=== PATIENT | male | born 1990 | race American Indian/Alaskan Native ===

== ENCOUNTER 2019-05-24 08:38 | Emergency (ER) | payer SELFPAY ==
[2019-05-24 08:44] VITALS: BP 145/81
[2019-05-24] MEDS ORDERED: FLUORESCEIN 1 MG STRIP OP ONE (12:02)
[2019-05-24] MEDS ORDERED: TETRACAINE 0.5% OPHTH SOLN 4ML OU ONE (12:02)
[2019-05-24] MEDS ORDERED: TOBRAMYCIN 0.3% OPHTH SOLN 5 ML OU ONE (12:03)
--- NOTE | 2019-05-24 12:03 | Emergency Department Report ---
Eye Injury/Foreign Body - HPI Duration: 1 Day Eye Location: Left Tetanus Status: Up to Date Eye Symptoms: Eye Pain: No, Blurred Vision: Yes, Eye Redness: Yes, Grinding/Hammering Metal: No, Used Eye Protection: No, Contact Lens Use: Yes, Recalls Injury: Yes, Photophobia: No Other History: 28 YO MALE COMES TO ER P SCRATCHING HIS EYE YESTERDAY BY RUBBING IT WITH CONTACT LENSES IN. TODAY EYE WATERING AND SWOLLEN. ED Review of Systems ROS: Stated complaint: CANT SEE OUT OF LEFT EYE Other details as noted in HPI Comment: All other systems reviewed and negative ED Past Medical Hx - Past Medical History Previous Medical History?: No - Surgical History Past Surgical History?: No - Family History Family history: no significant - Social History Smoking Status: Never Smoker Substance Use Type: None - Medications Home Medications: Home Medications Medication Instructions Recorded Confirmed Last Taken Type Azithromycin [Zithromax Z-TITI] 250 mg PO DAILY #6 tablet 05/24/19 Unknown Rx Eye Injury Exam - Exam General: Vital signs noted. No distress. Alert and acting appropriately. r eye perrl conjunctiva red mild eye swelling inc update fluor at 9p of the left eye and around iris pain relieved with tetracaine globe intact eoms intact no foreign body ED Course Vital Signs 05/24/19 08:42 Temperature 98.3 F Pulse Rate 56 L Respiratory 18 Rate Blood Pressure 145/81 O2 Sat by Pulse 98 Oximetry ED Medical Decision Making - Medical Decision Making see exam section dc home with tobra given he wears contact lenses and azithro given redness around eye pt dc home with optha follow up Vital Signs 05/24/19 08:42 Temperature 98.3 F Pulse Rate 56 L Respiratory 18 Rate Blood Pressure 145/81 O2 Sat by Pulse 98 Oximetry GIVEN TOBRA BOTTLE FROM ER WITH INSTRUCTIONS FOR USE. - Differential Diagnosis corneal abrasion/iritis Critical care attestation.: If time is entered above; I have spent that time in minutes in the direct care of this critically ill patient, excluding procedure time. ED Disposition Clinical Impression: Corneal abrasion due to contact lens, Iritis Disposition: [id number] TO HOME OR SELFCARE Is pt being admited?: No Does the pt Need Aspirin: No Condition: Stable Instructions: Corneal Abrasion (ED) Additional Instructions: motrin or tylenol for pain meds as ordered today follow up with eye MD referral below no contacts until cleared by eye MD Prescriptions: Azithromycin [Zithromax Z-TITI] 250 mg PO DAILY #6 tablet Referrals: RAYA NICHOLE MD [Staff Physician] - 3-5 Days Forms: Work/School Release Form(ED) Time of Disposition: 12:33
[2019-05-24] MEDS ORDERED: IBUPROFEN 800 MG TAB PO ONE (12:34)
== END 2019-05-24 13:36 | disposition home or self-care (01) ==
LOC: ED 08:38
DX: H18.822 Corneal disorder due to contact lens, left eye (principal); H20.9 Unspecified iridocyclitis; Z79.899 Other long term (current) drug therapy